=== PATIENT | male | born 1965 | race Caucasian/White ===

== ENCOUNTER 2017-01-05 16:25 | Emergency (ER) | payer BC ==
[2017-01-05 16:39] VITALS: BP 189/99
[2017-01-05] MEDS ORDERED: Propranolol 40 MG Tab ONE (16:55)
--- NOTE | 2017-01-06 10:57 | EDM.PDOC ---
ED HPI GENERAL MEDICAL PROBLEM - General Chief Complaint: General Stated Complaint: elevated BP Time Seen by Provider: 01/05/17 16:45 Source of Information: Reports: Patient History Limitations: Reports: No limitations - History of Present Illness INITIAL COMMENTS - FREE TEXT/NARRATIVE: This is a 51yo M with an elevated BP. Patient states he has felt his head feel funny and has had frequent headaches which he attributes to the elevated BP. Patient believes he may have had an elevated BP for months. He was recently followed by his IM physician in [place] and placed on Norvasc which had unfavorable side effects and then switched to lisinopril 10mg daily. Patient continues to have an elevated BP. Discussed stressors in life and it does appear there have been multiple factors involved in his life the past few weeks that may have contributed to increased stress. 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 (see below) Other Treatments METAL CUT OFF SAW OPERATOR: Linipril 10mg - Related Data Allergies Allergy/AdvReac Type Severity Reaction Status Date / Time No Known Allergies Allergy Verified 12/13/16 19:32 Home Meds: Home Meds Levothyroxine 115 mcg PO DAILY 12/01/13 [History] Lisinopril [Prinivil] 10 mg PO DAILY 01/05/17 [History] Past Medical History HEENT History: Reports: Impaired vision Cardiovascular History: Reports: Hypertension Respiratory History: Reports: None Musculoskeletal History: Reports: Fracture Other Musculoskeletal History: FX tib/fib 2013 Endocrine/Metabolic History: Reports: Hypothyroidism - Infectious Disease History Infectious Disease History: Reports: Chicken pox - Past Surgical History HEENT Surgical History: Reports: Adenoidectomy, Tonsillectomy Endocrine Surgical History: Reports: None Social & Family History - Family History Family Medical History: Noncontributory - Tobacco Use Smoking Status *Q: Never Smoker Used Tobacco, but Quit: No Second Hand Smoke Exposure: No - Caffeine Use Caffeine Use: Reports: None - Alcohol Use Days Per Week of Alcohol Use: 1 Number of Drinks Per Day: 1 Total Drinks Per Week: 1 - Recreational Drug Use Recreational Drug Use: No ED ROS GENERAL - Review of Systems Review Of Systems: ROS reveals no pertinent complaints other than HPI. ED EXAM, GENERAL - Physical Exam Exam: See Below Exam Limited By: No limitations General Appearance: alert, WD/WN, no apparent distress Eye Exam: bilateral eye: normal fundi, normal inspection, PERRL Ears: normal external exam Nose: normal inspection Throat/Mouth: Normal inspection Head: atraumatic, normocephalic Neck: normal inspection, supple, non-tender Respiratory/Chest: no respiratory distress, lungs clear, normal breath sounds Cardiovascular: normal peripheral pulses, regular rate, rhythm GI/Abdominal: normal bowel sounds Extremities: normal inspection Psychiatric: normal affect, normal mood Skin Exam: Warm, Dry, Intact Course - Vital Signs Last Recorded V/S: Last Vital Signs Temp 36.6 C 01/05/17 16:34 Pulse 75 01/05/17 16:34 Resp 18 01/05/17 16:34 BP 189/99 H 01/05/17 16:34 Pulse Ox 97 01/05/17 16:34 - Orders/Labs/Meds Orders: Active Orders 24 hr Category Date Time Status Ready for Discharge [RC] PER UNIT ROUTINE Care 01/05/17 17:40 Active Meds: Medications Discontinued Medications Generic Name Dose Route Start Last Admin Trade Name Freq PRN Reason Stop Dose Admin Propranolol HCl 40 mg 01/05/17 16:55 Inderal .ROUTE 01/05/17 16:56 .STK-MED ONE Departure - Departure Time of Disposition: 18:00 Disposition: Home, Self-Care 01 Condition: good Clinical Impression: Hypertension Qualifiers: Hypertension type: essential hypertension Qualified Code(s): I10 - Essential ( primary) hypertension Instructions: Hypertension, [id number], Managing Your High Blood Pressure Referrals: PCP,None [Primary Care Provider] - Forms: ED Department Discharge Care Plan Goals: Follow up in clinic in 2 weeks. take medication as prescribed - My Orders Last 24 Hours: My Active Orders 01/05/17 17:40 Ready for Discharge [RC] PER UNIT ROUTINE - Assessment/Plan Last 24 Hours: My Active Orders 01/05/17 17:40 Ready for Discharge [RC] PER UNIT ROUTINE
== END 2017-01-05 17:36 | disposition home or self-care (01) ==
LOC: LB.ED 16:25
DX: I10 Essential (primary) hypertension (principal); E03.9 Hypothyroidism, unspecified; Z79.899 Other long term (current) drug therapy
CPT/HCPCS: 99281; A9270

== ENCOUNTER 2017-01-17 10:24 | Emergency (ER) | payer BC ==
[2017-01-17] MEDS ORDERED: cloNIDine 0.1 MG Tab ONE (11:46)
[2017-01-17] MEDS ORDERED: cloNIDine 0.1 MG Tab PO ONE (11:46)
[2017-01-17 13:49] VITALS: BP 160/92
--- NOTE | 2017-01-17 16:20 | CT ---
DATE OF SERVICE: 01/17/17 CLINICAL DATA: hypertension uncontrolled with head ache UNENHANCED BRAIN CT Multislice acquisition through the brain without IV contrast was performed. No masses or mass effect. No intracranial hemorrhage. No evidence of acute or subacute infarct. There is minimal mucosal thickening in the ethmoid sinuses consistent with chronic sinusitis. No osseous abnormalities. IMPRESSION: No intracranial abnormalities. [id number] [facility]
--- NOTE | 2017-01-17 16:53 | EDM.PDOC ---
ED HPI GENERAL MEDICAL PROBLEM - General Chief Complaint: General Stated Complaint: ELEVATED BP Time Seen by Provider: 01/17/17 11:00 Source of Information: Reports: Patient History Limitations: Reports: No limitations - History of Present Illness INITIAL COMMENTS - FREE TEXT/NARRATIVE: According to patient he claims that his blood pressure has been elevated for the past 10 days. His Blood pressure go as high as systolic 220mmhg and diastolic into 120mmhg. He has been evaluated by Dr. Flanagan and presently on Propranolol Er 120mg daily, lisinopril 20mg twice daily and HCTZ 12.5mg daily and Dexamethosone 1mg daily. Today he checked his bP as was 220/120mmhg, also he felt some pain in his head dull achy pain. no blurry vision, no vomiting, no chest pain. no weakness. Pt did panic and hence came into emergency room. No history of use of street drugs. His PCP, Dr. Flanagan has been working him up. he has had ACTH, and DEXA challenge test which have been negative. Also his cortisol levels are normal. He has been intoemergency room here several time in the past 2 weeks and also has been to [facility] emergency room too. - Related Data Allergies Allergy/AdvReac Type Severity Reaction Status Date / Time No Known Allergies Allergy Verified 12/13/16 19:32 Home Meds: Home Meds Lisinopril [Prinivil] 20 mg PO DAILY 01/05/17 [History] Hydrochlorothiazide 25 mg PO DAILY 01/17/17 [History] LORazepam 0.5 mg PO TID PRN 01/17/17 [History] Levothyroxine 175 mcg PO ACBRK 01/17/17 [History] Propranolol [Inderal] 20 mg PO TID 01/17/17 [History] cloNIDine HCl [Catapres] 0.1 mg PO BID 01/17/17 [History] Past Medical History HEENT History: Reports: Impaired vision Cardiovascular History: Reports: Hypertension Respiratory History: Reports: None Musculoskeletal History: Reports: Fracture Other Musculoskeletal History: FX tib/fib 2013 Endocrine/Metabolic History: Reports: Hypothyroidism - Infectious Disease History Infectious Disease History: Reports: Chicken pox - Past Surgical History HEENT Surgical History: Reports: Adenoidectomy, Tonsillectomy Endocrine Surgical History: Reports: None Social & Family History - Family History Family Medical History: Noncontributory - Tobacco Use Smoking Status *Q: Never Smoker Used Tobacco, but Quit: No Second Hand Smoke Exposure: No - Caffeine Use Caffeine Use: Reports: None - Alcohol Use Days Per Week of Alcohol Use: 1 Number of Drinks Per Day: 1 Total Drinks Per Week: 1 - Recreational Drug Use Recreational Drug Use: No ED ROS GENERAL - Review of Systems Review Of Systems: See Below Constitutional: Denies: fever, chills, night sweats, diaphoresis HEENT: Denies: Ear pain, Nose pain, Throat swelling, Vision change Respiratory: Denies: shortness of breath, sputum Cardiovascular: Denies: No symptoms, Chest pain, Lightheadedness, Syncope GI/Abdominal: Reports: Nausea. Denies: Abdominal pain, Constipation, Diarrhea, Vomiting : Denies: dysuria, flank pain Musculoskeletal: Denies: neck pain, shoulder pain Skin: Denies: bruising, pruritis, rash Neurological: Reports: headache. Denies: confusion, dizziness, numbness, seizure, syncope, tingling, weakness, change in speech Psychiatric: Reports: Anxiety. Denies: Agitation, Confusion ED EXAM, GENERAL - Physical Exam Exam: See Below Exam Limited By: No limitations General Appearance: alert, WD/WN, no apparent distress Eye Exam: bilateral eye: EOMI, normal fundi, normal inspection, PERRL Ears: normal external exam, normal canal, hearing grossly normal, normal TMs Ear Exam: bilateral ear: auricle normal, canal normal, TM normal Nose: normal inspection, normal mucosa, no blood Throat/Mouth: Normal inspection, Normal lips, Normal teeth, Normal gums, Normal oropharynx, Normal voice, No airway compromise Head: atraumatic, normocephalic Neck: normal inspection, supple, non-tender, full range of motion Respiratory/Chest: no respiratory distress, lungs clear, normal breath sounds, no accessory muscle use, chest non-tender Cardiovascular: normal peripheral pulses, regular rate, rhythm, no edema, no gallop, no JVD, no murmur, no rub GI/Abdominal: normal bowel sounds, soft, non tender, no organomegaly, no distention, no abnormal bruit, no mass Extremities: normal inspection, normal range of motion, non-tender, normal capillary refill, no pedal edema Neurological: alert, oriented, CN II-XII intact, normal cognition, normal gait, normal reflexes, no motor/sensory deficits Psychiatric: normal affect, normal mood, anxious Skin Exam: Warm, Intact Course - Vital Signs Text/Narrative:: Pt's EKG and CT head are negative. Also he has had extensive and repeated BMP and they have all remained normal, hence I have not repeated his CMP. He has had Cortisol level which is normal, Dexa challenge shows normal ACTH. His TSH is elevated at 6.8 his T4 is high and his T3 is mildy low at 66. I have increased his synthroid to 175mcg and will repeat his TSH in 4 wks. Also I have added on ECHO, renal artery Doppler, Urinary 24 hrs creatinine, VMA and metanephrine. Angela I am not sure if this elevated BPis rebound from him decreasing his propranolol to 60mg from 120 or it is incidental. But propranolol does not really help much with hypertension. I have started him on taper to prevent rebound hypertension. He did receive clonidine 0.1mg in the emergency room and his systolic Bp did gradually come down and stabalise around systolic 160mmhg. So the new regime is lisinorpil 20mg BID, HCTZ 25mg daily, Clonidine 0.1mg BID, Dexamethasone 1mg daily. Myles wait on the test results and followup in clinic.Pt does understand the plan. Last Recorded V/S: Last Vital Signs Temp 98.7 F 01/17/17 11:00 Pulse 56 L 01/17/17 12:45 Resp 12 01/17/17 12:45 BP 160/92 H 01/17/17 12:45 Pulse Ox 100 01/17/17 11:36 - Orders/Labs/Meds Orders: Active Orders 24 hr Category Date Time Status EKG Documentation Completion [RC] ASDIRECTED Care 01/17/17 11:45 Active CREATININE,URINE 24HR [URCHEM] Stat Lab 01/17/17 12:20 Ordered Miscellaneous Lab [REFERENCE TEST TO [facility]] [REF] Lab 01/17/17 12:21 Ordered Stat Meds: Medications Discontinued Medications Generic Name Dose Route Start Last Admin Trade Name Freq PRN Reason Stop Dose Admin Clonidine HCl 0.1 mg 01/17/17 11:46 01/17/17 11:48 Catapres PO 01/17/17 11:47 0.1 mg ONETIME ONE Administration Clonidine HCl Confirm 01/17/17 11:46 Catapres Administered 01/17/17 11:47 Dose 0.1 mg .ROUTE .STK-MED ONE Departure - Departure Time of Disposition: 12:30 Disposition: Home, Self-Care 01 Condition: fair Clinical Impression: Resistant hypertension Instructions: Renovascular Hypertension, Clonidine tablets Referrals: PCP,None [Primary Care Provider] - Forms: ED Department Discharge Additional Instructions: Discontinue propanolol extended release. Taper off the medication down using propanolol (non-extended release). Start with 20 mg a day 3 day for 1 week, then 2 times a day for 1 week, then 1 time a day for 1 week. Then stop the medication Suggested follow up labs include: 24 hour urine, CT of head, a renal ultrasound for renal stenosis, and echocardiogram. Increase levothyroxine to 175 mcg daily. Have TSH and T3 rechecked in 4 weeks. Start Klonodine 1 tablet ( 0.1 mg ) twice daily. Increase hydrochlorothiazide to 1 tablet (25 mg). Continue to monitor pressures randomly (not at same times) three or four times a day. Can take an extra clonodine 1 tablet (0.1 mg if needed). Follow up with primary care after suggested test are done. - Problem List & Annotations (1) Resistant hypertension SNOMED Code(s): 14694427 Code(s): I10 - ESSENTIAL (PRIMARY) HYPERTENSION Status: Acute - Problem List Review Problem List Initiated/Reviewed/Updated: Yes - My Orders Last 24 Hours: My Active Orders 01/17/17 11:45 EKG Documentation Completion [RC] ASDIRECTED 01/17/17 12:20 CREATININE,URINE 24HR [URCHEM] Stat 01/17/17 12:21 Miscellaneous Lab [REFERENCE TEST TO [facility]] [REF] Stat - Assessment/Plan Last 24 Hours: My Active Orders 01/17/17 11:45 EKG Documentation Completion [RC] ASDIRECTED 01/17/17 12:20 CREATININE,URINE 24HR [URCHEM] Stat 01/17/17 12:21 Miscellaneous Lab [[facility]] [REF] Stat Assessment:: Resistant hypertension Plan: Pt's EKG and CT head are negative. Also he has had extensive and repeated BMP and they have all remained normal, hence I have not repeated his CMP. He has had Cortisol level which is normal, Dexa challenge shows normal ACTH. His TSH is elevated at 6.8 his T4 is high and his T3 is mildy low at 66. I have increased his synthroid to 175mcg and will repeat his TSH in 4 wks. Also I have added on ECHO, renal artery Doppler, Urinary 24 hrs creatinine, VMA and metanephrine. Meanhwile I am not sure if this elevated BPis rebound from him decreasing his propranolol to 60mg from 120 or it is incidental. But propranolol does not really help much with hypertension. I have started him on taper to prevent rebound hypertension. He did receive clonidine 0.1mg in the emergency room and his systolic Bp did gradually come down and stabalise around systolic 160mmhg. So the new regime is lisinorpil 20mg BID, HCTZ 25mg daily, Clonidine 0.1mg BID, Dexamethasone 1mg daily. Myles wait on the test results and followup in clinic.Pt does understand the plan.
== END 2017-01-17 12:45 | disposition home or self-care (01) ==
LOC: LB.ED 10:24
DX: I10 Essential (primary) hypertension (principal); E03.9 Hypothyroidism, unspecified; Z98.890 Other specified postprocedural states; Z79.899 Other long term (current) drug therapy
CPT/HCPCS: 70450; 82570; 93005; 99284; A0425; A0429; A9270; 83835

== ENCOUNTER 2017-01-20 19:28 | Observation (INO) | payer BC ==
[2017-01-21] MEDS ORDERED: cloNIDine 0.1 MG Tab PO SCH (06:00)
--- NOTE | 2017-01-21 07:42 | CT ---
DATE OF SERVICE: 01/20/17 CLINICAL DATA: elevated blood pressure ENHANCED ABDOMEN AND PELVIC CT: Multislice acquisition through the abdomen and pelvis with IV, but without oral contrast was performed. No priors. The lung bases are clear. The liver is normal size. There is mild diffuse fatty infiltration of the liver. No focal hepatic lesions. The gallbladder appears normal. No biliary duct dilatation. The spleen appears normal. There is an 11 mm nodule medial to the spleen consistent in appearance with an accessory spleen. The pancreas appears normal. The right and left adrenals appear normal. The right and left kidneys appear normal and enhance symmetrically. No hydronephrosis or hydroureter. The bladder is partially fluid-filled and appears normal. The prostate is mildly enlarged. The appendix is not dilated. No evidence of appendicitis. There is mild diverticulosis of the descending and sigmoid colon. No evidence of diverticulitis. There is apparent focal mural thickening within the rectum and sigmoid colon. This is probably related to nondistension. Colonoscopy is, however, recommended to exclude a neoplasm. No free air. No free fluid. No dilated loops of bowel. No adenopathy. No aortic aneurysm. There is an umbilical hernia containing fat. IMPRESSION: Focal mural thickening within the sigmoid colon and rectum. This is probably related to nondistension. Colonoscopy is, however, recommended. Other findings as discussed above. No acute abnormalities. [id number] [facility]
--- NOTE | 2017-01-21 07:50 | CT ---
DATE OF SERVICE: 01/20/17 CLINICAL DATA: neck strain. Resistant HTN. CERVICAL SPINE CT: Multislice axial acquisition from the base of the skull to T3 was performed. Axial images and sagittal and coronal reformations are reviewed. The vertebral bodies are of average height and in good alignment. No acute fracture or dislocation. There are disc margin spurs with disc space narrowing at the C5-6 level. There is a small hard disc protrusion at the C5-6 level that is paramedian on the left. It does produce ventral effacement of the dural sac. No significant central or foraminal stenosis. The lung apices are clear. The soft tissues demonstrate calcified atherosclerotic plaquing in the carotid bulbs bilaterally. No other significant findings. [id number] [facility]
[2017-01-21] MEDS ORDERED: CLONIDINE HCL 0.1 MG PO SCH (08:00)
--- NOTE | 2017-01-21 10:24 | ER ---
HISTORY OF PRESENT ILLNESS: A 51-year-old male here with his with concerns about extremely high blood pressure. The patient has been having episodes of high blood pressure. He tells me his highest reading was 230/130 at home. The patient was brought in by ambulance recently a few days ago for this same condition and the initial reading was also in the 230/130 range. He has been started on different medications including hydrochlorothiazide, lisinopril, propranolol, and Klonopin. The patient tells me that he will have a day or two where he feels pretty good and then he can tell us just going to spike again. He does not feel well. He has pressure in his head, a fuzzy feeling on top of his head. He has some neck discomfort at times. The patient has never had any problems with chest pain shortness of breath or chest pressure. He has not felt nauseated. Dr. Dawkins has been working with the patient. Multiple tests have been done. No definitive diagnosis has been found to yet. The patient has a home blood pressure machine and he tells me at times it will go so high that it cannot even read it, which is at 250 systolic. I am not sure if this is accurate, but the patient feels it is. The patient states that before he started getting these episodes, he was very active, now he is not active, he has been really taking it easy lately hoping that things will get better. OBJECTIVE: GENERAL APPEARANCE: The patient is awake and alert. No obvious distress. VITAL SIGNS: Reviewed. Initial blood pressure is 206/108. HEENT: Ears, TMs are normal. Nares are patent. Oral mucous membranes are moist. Tonsils not enlarged or injected. Pharynx not inflamed. NECK: Supple. LUNGS: Clear. There is no CVA tenderness with percussion. CARDIAC: Heart sounds distinct. S1, S2 present. Regular rate. No murmurs. ABDOMEN: Soft and nontender. SKIN: Warm and dry. There is no lower extremity edema. The patient blood pressure was rechecked with a better reading in the 170s over upper 90s. At this point, I consulted with Dr. Dawkins who happened to be on-call tonight with the following diagnosis of resistant or persistent hypertension. Diagnosis; Hypertension - unstable. TREATMENT PLAN: The patient will be admitted for observation. I will give him a baby aspirin tonight. He is to continue his current medications. He will be monitored closely overnight, and Dr. Dawkins will assume care for this patient at this time. CRS/MODL /[id number] MTDD
--- NOTE | 2017-01-21 14:53 | PCM.DCSUM1 ---
Discharge Summary - Hospital Course Free Text/Narrative:: Pt was admitted last night was observation and close monitoring of his blood pressure. apparently patient BP all through admission has been stable. his Bp has been around 120s/70s with few spike into 140s. Also when his pressure goes up his heart rate keeps going up too. He has had extensive workup. His CT head, abdomen and pelvis and neck has not shown any cause of elevated hypertension. His carotid Doppler was normal. His renal artery ultrasound has been normal. His ECHO shows good ejection fraction with mild diastolic dysfunction. His cortisol level is normal, CMP is normal ACTH level, dexamethsone suppression test , 24 hrs urine creatinine have all been normal. Only pending test is his renin levels and 24 hrs VMA. Pt claims that he has not been using herbal meds OTC. Presently he is on lisinopril 20mg BID, HCTZ 25mg daily, Clonidine 0.1mg BID and propranolol 20mg TID on tapering dose to stop. His TSH is slightly elevated hence have increased his synthroid to 175mcg daily and advised to repeat TSH in 4 wks. Pt and his family is concerned about his spikes of blood pressure going up to systolic 220mmhg and diastolic above 110mmhg. But these are transient pressure rise, and has not remained there for long time. 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 I do not know if this is related to anxiety induced adrenaline release causing his spike or if he is having acute stressors( which he claims he is not having). He has had complete workup for secondary hypertension and have not found any abnormal findings.Still Urine VMA is pending. At this point I did contact 's the medical office specialist at [facility] and discuss the workup and treatment with him. He agrees with workup. His recommendation is to continue present medication regime. Stop propranalol and start on lopressor 50mg bid. Wait for BP to settle down in 2-3 wks. I did discuss the plan with patient. Hence stopped his propranolol and started lopressor 50mg BID to start to night. I have advised patient that if he feels further workup needs to be done or if he wants to have second opinion he could take the medical record with him and see a different provider. But I cannot explain his sudden surg in blood pressure , unless he has some unknown or rare syndrome causing this. Brief History: Pt hs been a frequent visitor to the emergency room over the past 2-3 wks with elevated bloood pressure. Dang see the H&P for details - Discharge Data Discharge Date: 01/21/17 Discharge Disposition: Home, Self-Care 01 Condition: Fair - Discharge Diagnosis/Problem(s) (1) Resistant hypertension SNOMED Code(s): 41386340 ICD Code: I10 - ESSENTIAL (PRIMARY) HYPERTENSION Status: Acute Current Visit: No - Patient Instructions Diet: Heart Healthy Diet Fluid Restriction: 1500 mL Activity: As Tolerated Driving: May Drive Today Showering/Bathing: March Shower - Discharge Plan Prescriptions/Med Rec: Metoprolol Tartrate [Lopressor] 50 mg PO BID #60 tablet Home Medications: Home Meds Lisinopril [Prinivil] 20 mg PO DAILY 01/05/17 [History] Hydrochlorothiazide 25 mg PO DAILY 01/17/17 [History] LORazepam 0.5 mg PO TID PRN 01/17/17 [History] Levothyroxine 175 mcg PO ACBRK 01/17/17 [History] cloNIDine HCl [Catapres] 0.1 mg PO BID 01/17/17 [History] Aspirin 81 mg PO BEDTIME tab.chew 01/21/17 [Rx] Metoprolol Tartrate [Lopressor] 50 mg PO BID #60 tablet 01/21/17 [Rx] cloNIDine [Catapres] 0.1 mg PO Q8H tablet 01/21/17 [Rx] - Discharge Summary/Plan Comment DC Time >30 min.: Yes Discharge Summary/Plan Comment: LAB work discussed with patient. Dr. Cano's - Hair Machine Operator at [facility]' recommendations addressed with patient. Stop Propranolol, start Lopressor 50mg twice daily. Start first dose to night. Continue rest of the medications. Blood pressure should settle with time. - General Info Date of Service: 01/21/17 Functional Status: Reports: tolerating diet, ambulating - Review of Systems General: Denies: Fever, Weakness HEENT: Denies: sinus congestion, sore throat Pulmonary: Denies: shortness of breath, hemoptysis, wheezing Cardiovascular: Denies: Chest Pain, Lightheadedness Gastrointestinal: Denies: Abdominal pain, Diarrhea, Flatus, Nausea, Vomiting Genitourinary: Denies: frequency, burning Musculoskeletal: Denies: joint pain, joint swelling Skin: Denies: pruritis, rash Neurological: Denies: Confusion, Dizziness, Headache, Syncope, Difficulty Walking, Weakness - Patient Data Vitals - Most Recent: Last Vital Signs Temp 97.5 F 01/21/17 11:07 Pulse 76 01/21/17 10:00 Resp 14 01/21/17 11:07 BP 160/100 H 01/21/17 11:07 Pulse Ox 99 01/21/17 11:07 Weight - Most Recent: 95.254 kg Med Orders - Current: Current Medications Aspirin (Aspirin) 81 mg PO BEDTIME [facility] Clonidine HCl (Catapres) 0.1 mg PO Q8H [facility] Last Admin: 01/21/17 06:10 Dose: 0.1 mg (Hydrochlorothiazide [ Hydrochlorothiazide] 25 Mg)Own Med 25 mg PO DAILY [facility] Last Admin: 01/21/17 09:36 Dose: 25 mg (Lorazepam [ Lorazepam] 0.5 Mg) *Own Med 0.5 mg PO TID PRN PRN Reason: Anxiety (Levothyroxine [ Levothyroxine] 175 Mcg)Own Med 175 mcg PO ACBRK [facility] Last Admin: 01/21/17 06:05 Dose: 175 mcg (Lisinopril [ Prinivil] 20 Mg) Own Med 20 mg PO DAILY [facility] Last Admin: 01/21/17 09:36 Dose: 20 mg (Propranolol [ Inderal] 20 Mg) Own Med 20 mg PO TID [facility] Last Admin: 01/21/17 09:37 Dose: Not Given - Exam General: Reports: alert, oriented HEENT: Reports: Pupils equal, Pupils reactive, EOMI, Mucous membr. moist/pink Neck: Reports: supple Lungs: Reports: Clear to auscultation, Normal respiratory effort Cardiovascular: Reports: Regular Rate, Regular Rhythm Abdomen: Reports: bowel sounds present, soft, no tenderness, no distension Extremities: Reports: no edema, normal pulses Skin: Reports: warm, intact Neurological: Reports: no new focal deficit Psy/Mental Status: Reports: alert, normal affect *Q Meaningful Use (DIS) - VTE *Q VTE Criteria *Q: - Stroke *Q Stroke Criteria *Q: - AMI *Q AMI Criteria *Q:
[2017-01-21 15:06] VITALS: BP 158/100
[2017-01-21] MEDS ORDERED: Aspirin 81 MG Tab.Chew PO SCH (22:00)
== END 2017-01-21 15:30 | disposition home or self-care (01) ==
LOC: LB.ED 19:28 → LB.MS 21:20
PROVIDERS: ADMIT Physician Assistant; ATTEND Physician Assistant
DX: I10 Essential (primary) hypertension (principal)
CPT/HCPCS: 72125; 74177; 99284; A9270; G0378

== ENCOUNTER 2017-10-14 08:59 | Day surgery (SDC) | payer BC ==
[~2017-10-14 08:59] MED LIST: Metoclopramide 10 MG/2 ML SDV IV PRN; Sodium Chloride 0.9% 1,000 ML IV SCH; Sodium Chloride 0.9% 10 ML Syringe FLUSH PRN
[2017-10-14] MEDS ORDERED: Propofol 200 MG/20 ML SDV ONE (10:20)
[2017-10-14] MEDS ORDERED: FLU Vacc QS 2017-18 (36mos UP)/PF 60 MCG/0.5 ML Syringe IM ONE (10:45)
[2017-10-14 10:55] VITALS: BP 145/86
[2017-10-14] MEDS ORDERED: Simethicone 80 MG Tab.Chew PO PRN (11:20)
[2017-10-14] MEDS ORDERED: HYDROmorphone 2 MG/ML Syringe IVPUSH PRN (13:15)
--- NOTE | 2017-10-14 19:08 | OR ---
DATE OF OPERATION: 10/14/2017 PREOPERATIVE DIAGNOSIS: Screening colonoscopy, average risk. POSTOPERATIVE DIAGNOSIS: Normal colonoscopy. OPERATION: Screening colonoscopy, average risk. COMPLICATIONS: None. DRAINS: None. SPECIMENS: None. ESTIMATED BLOOD LOSS: Zero. ANESTHESIA: General propofol anesthesia. INDICATION: Mr. Garcia is a 52-year-old gentleman here for his primary screening colonoscopy. He is asymptomatic and of average risk. The above-mentioned procedure was explained. The risks, benefits, and complications were explained; the patient understood, agreed, and was brought to the operating room. DESCRIPTION OF PROCEDURE: The patient was brought to the operating room, placed in the left lateral decubitus position on the operating room table. Satisfactory general propofol anesthesia was administered. We began by performing a rectal examination which was within normal limits. I then placed the endoscope by finger introduction into the rectum and subsequently advanced to the level of the cecum. The cecum was identified by the appendiceal orifice, the cecal strap, and ileocecal valve. Careful evaluation of the mucosa was performed on withdrawal. There were no telangiectasias. No polyps, neoplastic growths, or diverticula. The colon was normal. Retroflexion was performed, and this appeared normal. The colon was decompressed and the endoscope was withdrawn. The patient tolerated the procedure well. There were no complications. Instrument count was correct. The patient was awoken in the OR and taken back for recovery. Recommend 10-year follow up. CHANELLE /[id number]
== END 2017-10-14 12:20 | disposition home or self-care (01) ==
LOC: LB.SDS 08:59
PROVIDERS: ATTEND Surgery
DX: Z12.11 Encounter for screening for malignant neoplasm of colon (principal); I10 Essential (primary) hypertension; L98.9 Disorder of the skin and subcutaneous tissue, unspecified; Z79.899 Other long term (current) drug therapy; Z88.8 Allergy status to other drugs, medicaments and biological substances
CPT/HCPCS: 45378; A9270; J2704; J2765; J7040

== ENCOUNTER → 2019-09-13 | Outpatient (CLI) | payer BC ==
--- NOTE | 2019-09-14 09:05 | US ---
DATE OF SERVICE: 09/13/19 CLINICAL DATA: Localized swelling, mass and lump, neck RIGHT NECK ULTRASOUND: Real-time examination in the area of the patient's palpable abnormality was performed. Comparison is made to a prior exam dated 08/30/19. Again noted are two lymph nodes that correlate with the patient's palpable abnormality. They measure 2.6 and 1.6 cm in length. They are essentially unchanged from the prior study. No new abnormalities. No abnormal fluid collections. [id number] [facility]
== END ==
LOC: LB.US 11:30
PROVIDERS: ATTEND Nurse Practitioner Family
DX: R22.1 Localized swelling, mass and lump, neck (principal)
CPT/HCPCS: 76536